=== PATIENT | male | born 1995 | race Caucasian/White ===

== ENCOUNTER 2019-10-01 03:57 | Emergency (ER) | payer OTHER ==
[~2019-10-01] VITALS: Ht 172.7 cm; Wt 65.8 kg
--- NOTE | 2019-10-01 04:15 | NUR ---
PT CAME IN BED 1 FROM HOME, C/O VOMITING AND DIARRHEA FOR THE LAST 24 HRS. A/O X 4, BREATHING AT ROOM AIR, UNLABORED BREATHING, PT STATES HE HAS A ABDOMINAL SHARP PAIN WITH A PAIN SCALE OF 10, NO KNOWN ALLERGY, PT SAID HE IS TAKING ZOLOFT AND GABAPENTIN MEDICATION.
--- NOTE | 2019-10-01 04:18 | NUR ---
PATIENT STATES THAT HE IS IN REHAB FOR HIS HEROIN ADDICTION. PATIENT'S LAST USE OF HEROIN USE 12 DAYS AGO.
[2019-10-01] MEDS ORDERED: KETOROLAC TROMETHAMINE 15 MG/ML VIAL ONE (04:22)
[2019-10-01] MEDS ORDERED: ONDANSETRON HCL/PF 4 MG/2 ML VIAL ONE (04:22)
--- NOTE | 2019-10-01 04:24 | NUR ---
Jakub ortiz in ED - 10/01/19 at 0507 by JEFE MD NOTIFIED OF PATIENT'S PAIN SCALE 12/09. NO ORDERS GIVEN BY MD.
[2019-10-01] MEDS ORDERED: KETOROLAC TROMETHAMINE INJ 30 MG/ML VIAL IV ONE (04:30)
[2019-10-01] MEDS ORDERED: ONDANSETRON HCL/PF 4 MG/2 ML VIAL IVP ONE (04:30)
[2019-10-01] MEDS ORDERED: IV NS 0.9% 1,000 ML BAG IV ONE (04:30)
--- NOTE | 2019-10-01 04:36 | NUR ---
PATIENT VOMITTED ON HIS GOWN, NO BLOOD NOTED, CHALKY VOMIT. PATIENT IS CHANGED INTO A NEW GOWN.
--- NOTE | 2019-10-01 04:38 | NUR ---
BLOOD IS DRAWN AND SENT WITH [employer]ASMIN WIRELESS ARCHITECT.
[2019-10-01 04:46] LABS: BASOPHILS % (AUTO) 0.4 % (0.0-2.0); EOSINOPHILS % (AUTO) 0.5 % (0.0-6.0); HEMATOCRIT 46 % (39-51); HEMOGLOBIN 15.5 g/dL (13.5-17.5); LYMPHOCYTES # (AUTO) 2.1 /CMM (0.8-4.8); LYMPHOCYTES % (AUTO) 17.5 % (20.0-44.0); MEAN CORPUSCULAR HGB CONC 34 g/dl (31.0-36.0); MEAN CORPUSCULAR VOLUME 87 fL (80-96); MONOCYTES # (AUTO) 0.9 /CMM (0.1-1.30); MONOCYTES % (AUTO) 7.3 % (2.0-12.0); NEUTROPHILS # (AUTO) 8.8 /CMM (1.8-8.9); NEUTROPHILS % (AUTO) 74.3 % (43.0-81.0); PLATELET COUNT (AUTO) 439 /CMM (150-450); RED BLOOD CELL COUNT(AUTO) 5.31 MIL/uL (4.5-6.0); WHITE BLOOD COUNT (AUTO) 11.8 K/uL (4.3-11.0)
--- NOTE | 2019-10-01 04:47 | NUR ---
CLIENT SERVER PROGRAMMER AT BEDSIDE FOR ULTRASOUND PROCEDURE.
--- NOTE | 2019-10-01 04:53 | NUR ---
PT REFUSES ULTRASOUND PROCEDURE. PT IS VOMITING. NOTIFIED
[2019-10-01] MEDS ORDERED: METOCLOPRAMIDE HCL 10 MG/2 ML VIAL ONE (04:54)
[2019-10-01] MEDS ORDERED: METOCLOPRAMIDE HCL 10 MG/2 ML VIAL IV ONE (05:00)
--- NOTE | 2019-10-01 05:01 | NUR ---
ADDENDUM: Intravenous End Time Documentation: Metoclopramide 10 mg IVPB: start time: 0501 AM ; end time: 0516 AM IV site: [facility] PIV # 20 Port # 1
[2019-10-01] MEDS ORDERED: IOHEXOL-300 100 ML VIAL IV ONE (05:14)
[2019-10-01] MEDS ORDERED: IV NS 0.9% 250 ML IV ONE (05:15)
[2019-10-01 05:43] LABS: ALBUMIN 4.5 g/dL (3.4-5.0); BILIRUBIN,DIRECT 0.2 mg/dL (0.0-0.2); BILIRUBIN,TOTAL 0.5 mg/dL (0.2-1.0); CALCIUM, SERUM 9.8 mg/dL (8.5-10.1); CREATININE 0.8 mg/dL (0.6-1.3); POTASSIUM 3.4 mmol/L (3.5-5.1); TOTAL PROTEIN, SERUM 7.7 g/dL (6.4-8.2)
--- NOTE | 2019-10-01 06:09 | NUR ---
PT TRANSPORTED TO RADIOLOGY FOR CT.
--- NOTE | 2019-10-01 06:24 | NUR ---
RETURNED FROM CT BROUGHT BACK BY CARDIOPULMONARY TECHNOLOGIST.
[2019-10-01 07:13] VITALS: BP 136/83
--- NOTE | 2019-10-01 07:14 | NUR ---
IV removed. Catheter intact and site benign. Pressure and 4x4 applied to site. No bleeding noted.
--- NOTE | 2019-10-01 07:14 | NUR ---
Patient discharged to home in stable condition. Written and verbal after care instructions given. Patient verbalizes understanding of instruction.
== END 2019-10-01 07:13 | disposition home or self-care (01) ==
LOC: ER 04:00
DX: R11.2 Nausea with vomiting, unspecified (principal); R19.7 Diarrhea, unspecified; R10.13 Epigastric pain; R10.11 Right upper quadrant pain; R10.31 Right lower quadrant pain
CPT/HCPCS: 36415; 74177; 80048; 80076; 83690; 85025; 96374; 96375; 99285; J1885; J2405; J2765; J7030; J7050; Q9967